=== PATIENT | female | born 1995 | race Caucasian/White ===

== ENCOUNTER → 2023-02-08 | Outpatient (CLI) | payer OTHER, SELFPAY ==
--- NOTE | 2023-02-08 08:45 | RAD_ITS ---
EXAMINATION: Fluoroscopic double contrast esophagram. INDICATION: GERD EXAMINATION/TECHNIQUE: Thick and thin barium oral contrast , barium pill, and gas bubbles were administered to the patient. Total Fluoroscopic Time: 16 AND number of Fluoroscopic Images: 36 fluoroscopic images (including 2 cine clips) Radiation dosage index: 99.92 mGy COMPARISON: None. FINDINGS: No masses or strictures are identified. The mucosal pattern is unremarkable. There is normal motility. Small hiatal hernia with trace gastroesophageal reflux. RAD/Esophagus Dual Contrast IMPRESSION: Small hiatal hernia with trace gastroesophageal reflux. Electronically Signed: Bharat Collazo MD at 12:01 EDT ,
== END | disposition home or self-care (01) ==
LOC: RAD 07:56
PROVIDERS: PCP Nurse Practitioner Family; Referring Provider Nurse Practitioner Family; Visit Provider Nurse Practitioner Family
DX: K21.9 Gastro-esophageal reflux disease without esophagitis (principal)
CPT/HCPCS: 74221

== ENCOUNTER → 2023-04-20 | Outpatient (CLI) | payer OTHER, SELFPAY | END | disposition home or self-care (01) | PROVIDERS: PCP Nurse Practitioner Family; Visit Provider Nurse Practitioner Family | DX: G47.10 Hypersomnia, unspecified (principal) | CPT/HCPCS: 95810 ==

== ENCOUNTER 2024-01-30 18:54 | Emergency (ER) | payer OTHER, SELFPAY ==
[2024-01-30 18:54] VITALS: BP 140/84; PULSE 94; RESP 17; TEMP 36.6; O2SAT 97; BMI 44.4
--- NOTE | 2024-01-30 19:49 | CT_ITS ---
INDICATION: trouble swallowing EXAMINATION: CT NECK WITH CONTRAST - CT Soft Tissue Neck W/ Contrast Injection TECHNIQUE: Helically acquired images were obtained of the neck following IV contrast. A radiation dose optimization technique was used for this scan. IV Contrast dosage and agent: [id number] COMPARISON: None. FINDINGS: NASOPHARYNX: Unremarkable. SUPRAHYOID NECK: There is enlargement of the bilateral palatine tonsils. No focal fluid collection. Otherwise unremarkable oropharynx, oral cavity, parapharyngeal space, and retropharyngeal space. INFRAHYOID NECK: Unremarkable larynx, hypopharynx, and supraglottis. THYROID: No focal lesions. SALIVARY GLANDS: Unremarkable. LYMPH NODES: Bilateral level 2 cervical lymphadenopathy. VASCULAR STRUCTURES: Unremarkable. VISUALIZED PORTIONS OF THE ORBITS, PARANASAL SINUSES, MASTOID AIR CELLS AND SKULL BASE: Unremarkable. BONES: Unremarkable. THORACIC INLET: Clear lung apices. CT/Soft Tissue Neck WITH Contrast IMPRESSION: Enlarged bilateral palatine tonsils with cervical lymphadenopathy is concerning for tonsilitis. No focal fluid collection. Electronically Signed: Curly Rodríguez MD at 21:16 EDT ,
--- NOTE | 2024-01-30 19:50 | EDS_ITS ---
HPI HPI - URI History of Present Illness Chief Complaint: Sore Throat Detail of Chief Complaint: Feels uncomfortable to swallow. Onset/Context/Timing Onset: Days Context: Gradual Onset Timing: Continuous Current Severity: Mild Maximum Severity: Mild Narrative Narrative: 28-year-old female has medical history of sleep apnea and hiatal hernia. States last week she has felt like she had difficulty swallowing. Only mildly uncomfortable. No fever. No vomiting. No earache. She is able to swallow. She is able to breathe. She said the swelling just feels different. She went to an urgent care today. They sent her to the emergency department for further evaluation. Prior similar symptoms: No Recent Illness/Hospitalization: No ROS ROS ED ROS Narrative Mild trouble swallowing. Mild discomfort. Review of Systems ROS Unobtainable: Denies due to encephalopathy Constitutional Constitutional ED: Denies chills or fever(s) Eyes Eyes: Denies blurry vision ENT ENT ED: Reports sore throat; Denies ear pain Cardiovascular Cardiovascular: Denies chest pain Respiratory/Chest Respiratory/Chest: Denies cough or dyspnea Gastrointestinal Gastrointestinal: Denies abdominal pain Genitourinary Genitourinary ED: Denies dysuria Musculoskeletal Musculoskeletal: Denies arthralgias Integumentary Denies abscess Neurologic Neurologic: Denies headache(s) Psychiatric Psychiatric: Denies anxiety Endocrine Endocrinology: Denies cold intolerance Hematologic/Lymphatic Hematologic/Lymphatic: Denies easy bleeding or easy bruising Allergic/Immunologic Allergic/Immunologic ED: Denies mouth swelling, tongue swelling or urticaria [facility] Medical History (Updated 01/30/24 @ 22:[address] Ronald Lorenzo MD) Sleep apnea Home Medications ?Medication ?Instructions ?Recorded ?Last Taken ?Type aripiprazole 10 mg tablet 10 mg PO DAILY 02/20/23 Unknown History escitalopram oxalate 10 mg tablet 10 mg PO DAILY 02/20/23 Unknown History pantoprazole 40 mg granules 40 mg PO DAILY 02/20/23 Unknown History delayed-release for susp in packet (Protonix) amoxicillin 500 mg capsule 500 mg PO TID 7 days #21 caps 01/30/24 Unknown Rx prednisone 20 mg tablet 40 mg (2 x 20 mg) PO DAILY 3 days 01/30/24 Unknown Rx #6 tabs Allergy/AdvReac Type Severity Reaction Status Date / Time No Known Allergies Allergy Verified 01/30/24 18:56 Family History Mother Heart disease Social History Smoking Status: Never smoker alcohol intake: current alcohol intake frequency: holidays/special occasions only EXAM Physical Exam Narrative Exam Narrative: 20-year-old female no acute distress vital signs stable afebrile. Pulse ox 97% on room air no hypoxia. H EENT exam posterior pharynx minimal erythema. No exudate. No significant enlargement of the tonsils or uvula. No stridor or drooling. Able to swallow own secretions. No trouble breathing. TMs are normal bilaterally. Underneath her tongue is normal. No Miguel Angel's angina. Neck nontender. Trachea midline. No masses. No lymphadenopathy. Normal range of motion. Lungs clear. Heart regular rhythm rate about 90 no murmur. Abdomen soft. Otherwise exam unremarkable. Const Vital Signs: 01/30/24 18:54 01/30/24 22:22 01/30/24 22:22 Temperature 98 F 98.1 F Temperature Source Temporal Pulse Rate 94 77 74 Respiratory Rate 17 18 18 Blood Pressure 140/84 H 116/63 120/68 Blood Pressure Mean 102 80 85 Pulse Ox 97 98 99 Oxygen Delivery Method Room Air Room Air Positive well nourished and well developed; Negative for cachectic or contractures General Appearance ED: well developed and NAD; Negative for cachectic, contractures, cyanotic, diaphoretic or pallor Nutritional Appearance: Negative for cachectic HEENT Reports moist mucous membranes; Denies dry mucous membranes normocephalic and atraumatic; Negative for scalp tenderness Mouth ED: No dry mucous membranes Mouth: No dry mucous membranes Throat: posterior oropharynx normal Eyes PERRL and EOMs intact bilaterally General Eye ED: Negative for pale conjunctiva, scleral icterus or other Neck no lymphadenopathy, supple, no meningeal signs and no JVD General: Negative for anterior neck swelling or lymphadenopathy Resp normal respiratory effort and clear to auscultation bilaterally Effort and Inspection: Negative for retractions Auscultation: Negative for rales, rhonchi or wheezes Cardio S1 normal heart sound, S2 normal heart sound and no murmurs Rate: regular rate Rhythm: regular rhythm GI non-tender, non-distended and no masses Inspection: Negative for abdominal distention Auscultation: normoactive bowel sounds Palpation: soft; Negative for tender or guarding Back/Spine no CVA tenderness and normal ROM General Back: Negative for CVA tenderness Cervical Spine: Negative for cervical spine tenderness Thoracic Spine / Upper Back: Negative for thoracic spinal tenderness Lumbar Spine / Lower Back: Negative for lumbar spinal tenderness Sacrum: Negative for tenderness Extremity normal to inspection and full ROM General Extremety ED: Negative for cyanosis or tenderness General Extremity: Negative for cyanosis Neuro oriented x3 and CN's II-XII intact bilaterally Sensorium / Orientation: alert, oriented to person, oriented to place and oriented to time; Negative for orientation impaired, lethargic or stuporous Motor Exam: strength 5/5 throughout Psych mental status grossly normal Appearance: Negative for other Attitude: No agitated Mood & Affect: Negative for depressed, anxious or tearful Skin General Skin Exam: Negative for jaundice or pallor Lesions: no lesions Rashes: no rashes Trauma: Negative for abrasion or laceration MDM MDM MDM Narrative Medical decision making narrative: 28-year-old female states she is having trouble swallowing. Exam benign. Rapid strep and a CT soft tissue neck. She is in no distress. She is not drooling. She is having no trouble breathing. I do not feel any lymphadenopathy or mass to the anterior or posterior aspect of her neck. Repeat exam patient is doing well. We went over her test results. Her rapid strep is negative. Her CAT scan does show enlarged bilateral palate teen tonsils with cervical lymphadenopathy. I did not see any fluid collection. This may be viral but has been going on a week and has not gotten any better. She and I discussed treatment options we will treat her with amoxicillin 500 3 times daily. First dose given here. Prednisone for the next 4 days first dose given here. Follow-up with your doctor if not improving or return if worse. History & Record Review Discussion w/independent historian: Patient Lab Data Attestation: I reviewed the patient's lab results. Lab results narrative: Rapid strep Radiography Diagnostic Testing: Clinical Impression(s) from Imaging Studies Soft Tissue Neck CT 01/30/24 19:49 IMPRESSION: Enlarged bilateral palatine tonsils with cervical lymphadenopathy is concerning for tonsilitis. No focal fluid collection. Electronically Signed: Curly Rodríguez MD at 21:16 EDT , Discharge Plan Triage Chief Complaint: Sore Throat ED Provider: Ronald Lorenzo Dx/Rx/DC Orders Clinical Impression: Acute tonsillitis, History of sleep apnea Instructions: Tonsillitis in Adults Prescriptions: New amoxicillin 500 mg capsule 500 mg PO TID 7 Days Qty: 21 0RF prednisone 20 mg tablet 40 mg PO DAILY 3 Days Qty: 6 0RF No Action pantoprazole [Protonix] [address] for susp in packet 40 mg PO DAILY aripiprazole 10 mg tablet 10 mg PO DAILY escitalopram oxalate 10 mg tablet 10 mg PO DAILY Primary Care Provider: Care Physician,No Primary Referrals: Simba Nava MD [Med Staff - [employer] Wall Installer] - 1 Week if not improving Care Physician,No Primary [Primary Care Provider] - Activity Restrictions/Additional Instructions: Of enlarged tonsils and some swollen lymph nodes. This may be viral. However because it has not been getting better for a week. Will try you on a trial of amoxicillin, antibiotic therapy, 1 pill 3 times a day for 7 days. Prednisone daily for the next 3 days start tomorrow to decrease inflammation. Follow-up with your doctor if not improving or return if worse. This will take several days to start showing any improvement. Print Language: Nauruan Disposition Disposition: Home, Self Care
[2024-01-30 22:22] VITALS: BP 116/63; BP 120/68; PULSE 74; PULSE 77; RESP 18; TEMP 36.7; O2SAT 98; O2SAT 99
[2024-01-30] MEDS: AMOXICILLIN 500 MG CAPSULE PO (22:34)
[2024-01-30] MEDS: predniSONE 20 MG Tablet 40 MG PO (22:34)
== END 2024-01-30 22:35 | disposition home or self-care (01) ==
PROVIDERS: Emergency Provider Emergency Medicine; Visit Provider Emergency Medicine
DX: J35.1 Hypertrophy of tonsils (principal)
CPT/HCPCS: 70491; 87651; 99283; Q9967; A4216

== ENCOUNTER → 2024-04-04 | Outpatient (CLI) | payer OTHER, SELFPAY | END | disposition home or self-care (01) | PROVIDERS: PCP Nurse Practitioner Family; Referring Provider Nurse Practitioner Acute Care; Visit Provider Nurse Practitioner Acute Care | DX: G47.33 Obstructive sleep apnea (adult) (pediatric) (principal) | CPT/HCPCS: 95811 ==

== ENCOUNTER → 2024-04-16 | Outpatient (CLI) | payer OTHER, SELFPAY | END | disposition home or self-care (01) | LOC: SL 13:27 | PROVIDERS: PCP Nurse Practitioner Family; Referring Provider Nurse Practitioner Acute Care; Visit Provider Nurse Practitioner Acute Care | DX: R69 Illness, unspecified (principal) ==

== ENCOUNTER → 2025-02-25 | Outpatient (CLI) | payer MEDICAID, SELFPAY ==
--- NOTE | 2025-02-25 08:48 | US_ITS ---
PROCEDURE: BREAST LIMITED UNILATERAL 02/25/2025 REASON FOR EXAM: Left breast lump. TECHNIQUE: Targeted left breast ultrasound. COMPARISON: Prior mammogram done earlier in the day. FINDINGS: Left breast ultrasound was targeted to the upper medial aspect of the left breast.. The breast tissue appears sonographically normal. No cyst, solid mass, or suspicious shadowing. US/Breast Limited Unilateral IMPRESSION: Impression: Unremarkable sonographic evaluation of the upper medial aspect of t he left breast. Birads: BI-RADS 1: NEGATIVE. RECOMMEND ANNUAL MAMMOGRAPHIC SCREENING. Reading Location: [place] [id number]
--- NOTE | 2025-02-25 08:48 | BI_ITS ---
EXAM: DIAG MAMM W/CAD, BILAT 02/25/2025 CLINICAL HISTORY: F, Age 29 y/o , ABNORMAL BREAST EXAM Left breast lump at the 11 o'clock radiant. TECHNIQUE: Bilateral Diagnostic digital breast tomosynthesis with 2D and 3D images. Computer aided detection. COMPARISON: Prior exam(s) dated baseline study.. FINDINGS: TISSUE DENSITY: The breast tissue is heterogenously dense, which may obscure small masses. Bilateral Breast Mammographic Findings: No significant masses, calcifications or other abnormalities are identified. With the patient's history of a palpable lump in the left breast, targeted sonographic correlation recommended. BI/DIAG MAMM W/CAD, BILAT IMPRESSION: OVERALL FINAL ASSESSMENT: BIRADS 0 Incomplete: Need additional imaging evaluati on and/or prior mammograms for comparison.. RECOMMENDATION: Targeted sonographic correlation recommended. A letter with findings and recommendations will be mailed to the patient. Reading Location: [place] [id number]
== END | disposition home or self-care (01) ==
LOC: OPBI 08:46
PROVIDERS: PCP Nurse Practitioner Family; Referring Provider Obstetrics & Gynecology; Visit Provider Obstetrics & Gynecology
DX: N63.20 Unspecified lump in the left breast, unspecified quadrant (principal)
CPT/HCPCS: 76642; 77062; 77066; G0279